=== PATIENT | female | born 1955 | race Caucasian/White ===

== ENCOUNTER 2018-08-14 09:08 | Outpatient (CLI) | payer BC ==
--- NOTE | 2018-08-14 11:36 | CT ---
CT OF THE ABDOMEN AND PELVIS WITH CONTRAST: COMPARISON: 08/02/2012. HISTORY: Upper abdominal/gastric pain. Left upper quadrant abdominal pain and epigastric pain. Previous endo scopic study done yesterday. TECHNIQUE: Multiple contiguous axial images were obtained in a CT of the abdomen and pelvis with contrast. P.o. contrast was administered. Coronal reformats were performed. FINDINGS: The liver, gallbladder, kidneys, adrenal glands, spleen, and pancreas are unremarkable. No free air, free fluid, or stranding changes are seen in the abdomen and pelvis. The patient is status post hysterectomy. The large and small bowel are unremarkable. The appendix i s normal. No abnormality is seen in the stomach. No abdominal or pelvic lymphadenopathy are seen. Degenerative changes are seen in the spine. The vi sualized inferior thorax and abdominal wall soft tissues are unremarkable. IMPRESSION: No evidence of acute intraabdominal/pelvic abnormality. POS: [facility]
== END 2018-08-14 09:09 | disposition home or self-care (01) ==
LOC: TBSIIMAG 09:08
PROVIDERS: ATTEND Internal Medicine Gastroenterology
DX: R10.13 Epigastric pain (principal); R10.12 Left upper quadrant pain
CPT/HCPCS: 74177; 82565

== ENCOUNTER 2021-03-17 08:12 | Outpatient (CLI) | payer MEDICARE | END 2021-03-17 08:13 | disposition home or self-care (01) | LOC: BICMAMMO 08:12 | PROVIDERS: ATTEND Family Medicine | DX: Z12.31 Encounter for screening mammogram for malignant neoplasm of breast (principal); Z13.820 Encounter for screening for osteoporosis; Z78.0 Asymptomatic menopausal state; M85.89 Other specified disorders of bone density and structure, multiple sites | CPT/HCPCS: 77063; 77067; 77080 ==

== ENCOUNTER 2022-07-05 08:28 | Outpatient (CLI) | payer MEDICARE | END 2022-07-05 08:29 | disposition home or self-care (01) | LOC: BICMAMMO 08:28 | PROVIDERS: ATTEND Family Medicine | DX: Z12.31 Encounter for screening mammogram for malignant neoplasm of breast (principal) | CPT/HCPCS: 77063; 77067 ==

== ENCOUNTER 2022-09-30 12:06 | Emergency (ER) | payer MEDICARE ==
[2022-09-30] MEDS ORDERED: Morphine 4 MG/ML VIAL ONE (12:39)
== END 2022-09-30 13:55 | disposition home or self-care (01) ==
LOC: ERS 12:06
DX: M54.50 Low back pain, unspecified (principal); E78.5 Hyperlipidemia, unspecified
CPT/HCPCS: 96372; 99283; J2270